=== PATIENT | female | born 1955 | race Caucasian/White ===

== ENCOUNTER → 2017-03-08 | Outpatient (CLI) | payer BC ==
[~2017-03-08] MED LIST: ASPI-557 PO; CALC-750 PO; DILT120C47 PO; METH10TA PO; NIAC100045 PO; TRAM50TA4 PO
--- NOTE | 2017-03-08 16:41 | DI ---
Indication: ITS.REASON: M25.562 PAIN IN LEFT KNEE PROCEDURE: MRI KNEE LEFT W/O CONTRAST: Encounter: Initial Comparison: Left knee MRI dated August 15, 2013 and left knee radiographs dated October 31, 2014 Technique: Multiplanar multisequence MR imaging of the left knee was performed without contrast. Findings: Complex degenerative tear of the posterior horn medial meniscus is again seen. Lateral meniscus is intact. The ACL and PCL are intact. The MCL and lateral collateral ligament complex are intact. The extensor mechanism is within normal limits. No acute fracture. There is new heterogeneity of the distal femur and proximal tibial bone marrow. There are scattered T2 hyperintense nodular foci seen throughout these areas which were not present on the comparison study. No obvious radiographic correlate on the 2015 radiographs. The cartilage of the lateral compartment shows partial-thickness loss with focal full-thickness loss in the anterior femoral condyle with subchondral edema. Medial compartment cartilage shows areas of focal full-thickness loss with osteophyte formation. Patellofemoral compartment has full-thickness loss in the median ridge and portions of the lateral facet. Small joint effusion. No Curtis's cyst. Muscular signal intensity is within normal limits. Impression: 1. New multifocal marrow abnormality with numerous tiny lesions seen in the distal femur and proximal tibia. Differential considerations include atypical red marrow. Recommend correlation for any history of anemia or marrow stimulating medications. Other considerations include metastatic disease and marrow infiltrating processes such as myeloma and leukemia/lymphoma. Nuclear medicine bone scan may be helpful for further evaluation. 2. Tricompartmental osteoarthritis with a degenerative medial meniscal tear. .
== END ==
LOC: IMA 15:05
PROVIDERS: ATTEND Family Medicine
DX: M17.12 Unilateral primary osteoarthritis, left knee (principal); M23.322 Other meniscus derangements, posterior horn of medial meniscus, left knee; R93.8 Abnormal findings on diagnostic imaging of other specified body structures; M25.562 Pain in left knee

== ENCOUNTER 2017-06-07 07:30 | Inpatient (IN) ==
[2017-06-21] MEDS ORDERED: LIDOCAINE 1% (10mg/ml) 2mL INJ PF SDV ID ONE (06:00)
[2017-06-21] MEDS ORDERED: METOCLOPRAMIDE 10mg/2ml INJECTION IVP ONE (06:00)
[2017-06-21] MEDS ORDERED: CEFAZOLIN 1 G INJECTION IVP ONE (06:00)
[2017-06-21] MEDS ORDERED: FAMOTIDINE PB 20 MG/50 ML BAG IV ONE (06:00)
[2017-06-21] MEDS ORDERED: DEXAMETHASONE 4 MG/ML INJECTION IVP ONE (06:00)
[2017-06-21] MEDS ORDERED: ACETAMINOPHEN 500 MG TABLET PO ONE (06:00)
[2017-06-21] MEDS ORDERED: ONDANSETRON 4 MG/2 ML INJECTION IVP ONE (06:00)
[2017-06-21] MEDS ORDERED: NOZIN NASAL SWAB NAS ONE ×2 (06:00→15:55)
[2017-06-21] MEDS ORDERED: EPINEPHrine 0.25 MG, BUPIVACAINE 0.25% PF 30 ML, MORPHINE SULFATE 15 MG, KETOROLAC INJ ... OPSITE ONE (08:00)
--- OUTSIDE RECORDS SUMMARY | 2017-06-21 10:58 | External Medical Summary ---
:1955 Author Organization [employer] Care Team Providers Name Role Phone Lei Acosta Provider Role Unavailable Allergies No Known Allergies Problems Problem Type Condition Code Onset Dates Condition Status Assessment Dental caries, unspecified K02.9 Active Medications Medication Code Code Instructions Start End Date Status [place] [address]-22 not 05-01 [place] [address]-02 5-325 MG Orally 1 tablet minophen 65-01 every 4-6 hours as [place] [address]-43 0.12 % not Gluconate 01-16 Mouth/Throat defined morning and bedtime Cartia XT [facility] 77368-19 not 00-05 defined Procedures Procedure Coding System Code Date RESIN COMPOS - 1 SURFACE POSTERIOR CPT-4 D2391 Aug 14, 2016 Results No Known Results Summary Purpose eClinicalWorks Submission
--- OUTSIDE RECORDS SUMMARY | 2017-06-21 10:58 | External Medical Summary ---
:1955 Author Organization [employer] Care Team Providers Name Role Phone Lei Acosta Provider Role Unavailable Allergies, Adverse Reactions, Alerts Substance Reaction Event Type Seasonal Info Not Available Non Drug Allergy Problems Problem Type Condition Code Onset Dates Condition Status Assessment Encounter for dental examination and Z01.20 Active cleaning without abnormal findings Medications Medication Code Code Instructions Start End Date Status Dosage System Date Methimazole [facility] 57071-97 not 05-01 defined Hydrocodone-Aceta [facility] 22544-29 5-325 MG Orally 1 tablet minophen 65-01 every 4-6 hours as [place] [address]-35 0.12 % not Gluconate 01-16 Mouth/Throat defined morning and bedtime Cartia XT [facility] 05527-40 not 00-05 defined Procedures Procedure Coding System Code Date Periodontal scaling & root CPT-4 D4341 Jul 03, 2016 Vital Signs Date/Time: Jul 03, 2016 Blood Pressure Diastolic 88 mm Hg Blood Pressure Systolic 141 mm Hg Cardiac Monitoring Heart Rate 67 /min Results No Known Results Summary Purpose [employer]ClinicalWorks Submission
--- OUTSIDE RECORDS SUMMARY | 2017-06-21 10:58 | External Medical Summary ---
:1955 Author Organization [employer] Care Team Providers Name Role Phone Lei Acosta Provider Role Unavailable Allergies, Adverse Reactions, Alerts Substance Reaction Event Type Seasonal Info Not Available Non Drug Allergy Problems Problem Type Condition Code Onset Dates Condition Status Assessment Encounter for dental examination and Z01.20 Active cleaning without abnormal findings Medications Medication Code System Code Instructions Start Date End Date Status Dosage Methimazole [facility] [address] not defined -01 Cartia XT [facility] [address] not defined -05 Procedures Procedure Coding System Code Date INTRAORL - CMPL SERIES CODE 01152 CPT-4 D0210 Jun 06, 2016 COMP ORAL EVALUATION - NEW/EST PT CPT-4 D0150 Jun 06, 2016 Results No Known Results Summary Purpose [facility] Submission
--- OUTSIDE RECORDS SUMMARY | 2017-06-21 10:58 | External Medical Summary ---
:1955 Author Organization [employer] Care Team Providers Name Role Phone Lei Acosta Provider Role Unavailable Allergies No Known Allergies Problems Problem Type Condition Code Onset Dates Condition Status Assessment Fracture of tooth (traumatic), S02.5XXB Active initial encounter for open fracture Medications Medication Code Code Instructions Start End Date Status Dosage System Date Hydrocodone[place]Aceta N[place] 66702-57 5-325 MG Orally 1 tablet minophen 65-01 every 4-6 hours as needed p.r.n. Methimazole NDC 89942-50 not 05-01 defined Cartia XT NDC 31717-77 not 00-05 defined Chlorhexidine NDC 84705-21 0.12 % not Gluconate -16 Mouth/Throat defined morning and bedtime Procedures Procedure Coding System Code Date RESIN COMPOS - ONE SURFACE ANTERIOR CPT-4 D2330 Aug 01, 2016 RESIN COMPOS - ONE SURFACE ANTERIOR CPT-4 D2330 Aug 01, 2016 Results No Known Results Summary Purpose [employer]ClinicalWorks Submission
--- OUTSIDE RECORDS SUMMARY | 2017-06-21 10:58 | External Medical Summary ---
:1955 Author Organization [employer] Care Team Providers Name Role Phone Lei Acosta Provider Role Unavailable Allergies No Known Allergies Problems Problem Type Condition Code Onset Dates Condition Status Assessment Encounter for dental examination and Z01.20 Active cleaning without abnormal findings Medications Medication Code Code Instructions Start End Date Status Dosage System Date Cartia XT NDC 48825-05 not 00-05 defined Hydrocodone-Aceta NDC 54639-36 5-325 MG Orally 1 tablet minophen 65-01 every 4-6 hours as needed p.r.n. [place]im[place] [address]-09 not 05-01 [place] [address]-91 0.12 % not Gluconate 01-16 Mouth/Throat defined morning and bedtime Procedures Procedure Coding System Code Date Periodontal scaling & root CPT-4 D4341 Aug 09, 2016 Vital Signs Date/Time: Aug 09, 2016 Blood Pressure Diastolic 81 mm Hg Blood Pressure Systolic 131 mm Hg Cardiac Monitoring Heart Rate 83 /min Results No Known Results Summary Purpose [employer]Works Submission
--- OUTSIDE RECORDS SUMMARY | 2017-06-21 10:58 | External Medical Summary ---
[...] Status Dosage System Date Cartia XT NDC 19419-94 not 00-05 defined Chlorhexidine NDC 07[address]-28 0.12 % not Gluconate 01-16 Mouth/Throat defined morning and bedtime Methimazole NDC 85816-45 not 05-01 defined Hydrocodone[place]Aceta N[place] 408[address]-93 5-325 MG Orally 1 tablet minophen 65-01 every 4-6 hours as needed p.r.n. Procedures Procedure Coding System Code Date Periodontal scaling & root CPT-4 D4341 Jul 25, 2016 Vital Signs Date/Time: Jul 25, 2016 Blood Pressure Diastolic 77 mm Hg Blood Pressure Systolic 134 mm Hg Cardiac Monitoring Heart Rate 50 /min Results No Known Results Summary Purpose eClinicalWorks Submission
--- OUTSIDE RECORDS SUMMARY | 2017-06-21 10:58 | External Medical Summary ---
:1955 Author Organization e[employer]Works Care Team Providers Name Role Phone Lei Acosta Provider Role Unavailable Allergies No Known Allergies Problems Problem Type Condition Code Onset Dates Condition Status Assessment Dental caries, unspecified K02.9 Active Medications Medication Code Code Instructions Start End Date Status [place] [address]-47 0.12 % not Gluconate 01-16 Mouth/Throat defined morning and bedtime [place] 49394-42 5-325 MG Orally 1 tablet minophen 65-01 every 4-6 hours as needed p.r.n. Cartia XT NDC 19705-44 not 00-05 [place] [address]-63 not 05-01 defined Procedures Procedure Coding System Code Date RESIN COMPOS - 2 SURFACES POSTERIOR CPT-4 D2392 Jul 27, 2016 RESIN COMPOS - 1 SURFACE POSTERIOR CPT-4 D2391 Jul 27, 2016 RESIN COMPOS - 2 SURFACES POSTERIOR CPT-4 D2392 Jul 27, 2016 Results No Known Results Summary Purpose eClinicalWorks Submission
[2017-06-21 11:04] VITALS: BMI 29.1
--- NOTE | 2017-06-21 11:21 | History & Physical Update ---
- History and Physical Update Date: 06/21/17 Update: I evaluated this patient and found no changes in the history and clinical exam findings. The treatment plan and recommendations are also unchanged from the previous documentation.
[2017-06-21] MEDS: LR 1,000 ML IV SCH ×2 (11:40→14:03)
--- NOTE | 2017-06-21 11:51 | Anesthesia Preoperative Report ---
Anesthesia Preoperative Record - Date and Time Date: 06/21/17 Preoperative Diagnosis: Lt TKA M17.12 primary osteoarthritis left knee Proposed Procedure: left knee arthroplasty NPO Since Date: 06/20/17 NPO Since Time: 23:00 Allergies/Adverse Reactions: Allergies Allergy/AdvReac Type Severity Reaction Status Date / Time No Known Drug Allergies Allergy Unknown Verified 06/21/17 11:10 - Vital Signs Vital Signs: Temperature 98.4 F 06/21/17 11:03 Pulse Rate 71 06/21/17 11:21 Respiratory Rate 17 06/21/17 11:03 Blood Pressure 153/83 H 06/21/17 11:03 Pulse Oximetry 96 06/21/17 11:03 Height and Weight: Height 1.59 m Weight 73.5 kg Body Mass Index 29.1 - Medications Inpatient Medications: Current Medications Epinephrine HCl 0.25 mg/Bupivacaine HCl 30 ml/Morphine Sulfate 15 mg/Ketorolac Tromethamine 60 mg/Sodium Chloride 65.25 mls @ 1 mls/hr OPSITE INTRAOP ONE PRN Reason: Protocol Stop: 06/24/17 01:14 Lactated Ringer's (Lactated Ringers) 1,000 mls @ 50 mls/hr IV .Q20H BRAD Last Admin: 06/21/17 11:40 Dose: 50 mls/hr Miscellaneous Medication (Tranexamic 1gm/Ns 100 Irr Mix) 100 ml IR O ONE Stop: 06/21/17 15:03 Sodium Chloride (Iv Flush) 10 - 80 ml IVF PRN PRN PRN Reason: Flushing Home Medications: Home Medications Medication Instructions Recorded Confirmed Type Mapap Regular Strength 325 mg 650 mg PO Q6H PRN 05/14/17 06/21/17 History tablet methimazole 10 mg tablet 25 mg PO DAILY 05/14/17 06/21/17 History Prilosec (Omeprazole) 20 mg 20 mg PO DAILY 30 Days cap 05/16/17 06/21/17 History capsule,delayed release Raw Meal Vitamin 1 unit PO DAILY 05/16/17 06/21/17 History aspirin 81 mg tablet,delayed 81 mg PO DAILY tab 05/16/17 06/20/17 History release biotin 5,000 mcg disintegrating 5,000 mcg PO DAILY tab 05/16/17 06/21/17 History tablet dilTIAZem HCl [Cartia Xt] 120 mg PO DAILY 05/16/17 06/21/17 History Niacin [Niacin ER] 1,000 mg PO HS 06/05/17 06/21/17 History - Medical History Respiratory: Reports: Sleep Apnea (does not use cpap ) Cardiovascular: Reports: Hypertension, Other (heart cath Dr. Simental last week, no problems due to abnomal cxray ) Neuro/Musculoskeletal: Reports: Depression, Other (anxiety ) - Surgical History HEENT Surgeries: Reports: Eye Surgery (LASER SURGERY FOR A VEIN RIGHT), Tonsillectomy ( A CHILD PER PT) Cardiac Surgeries/Treatments: Reports: Cardiac Catheterization (LHC 1 WEEK AGO/ NEGATIVE) Respiratory Surgery/Treatments: Reports: CPAP Use (DOESN'T USE PER PT) GI Surgery/Treatments: Reports: Appendectomy, Colonoscopy, EGD Musculoskeletal Surgery/Tx: Reports: Knee Arthroscopy (LEFT), Orthopedic Surgery (LEFT ARM PLATE & REMOVAL) Reproductive Surgery/Treatment: Reports: Hysterectomy, Tubal Ligation Anesthesia Reactions: Other (hard time breathing ) Hx Family Anesthesia Reaction: No History of Motion Sickness: No - Social History Smoking Status: Never smoker - Pertinent Findings EKG Rhythm: Normal Sinus Rhythm - Physical Exam Respiratory Exam: Present: lungs clear, bilateral breath sounds equal Cardiovascular Exam: Present: regular rate and rhythm, no murmur - Airway Assessment Mallampati Score: III TMD: 2 Fingerbreadths Overall Assessment: no airway concerns, may be difficult intubation - ASA ASA Score: 2 - Plan Anesthesia: General Inhalation Gases Peripheral Nerve Block: Saphenous-Left - Discussion Discussion: Discussed risks/options/alternatives of anesthesia and questions answered. Patient consents. Nursing pain assessment noted. Attestation Statement: Prior to the delivery of any anesthetic medication, I examined the patient, developed the plan, obtained the patient's consent and discussed the risk and benefits of the procedure with the patient/guardian.
[2017-06-21] MEDS ORDERED: MIDAZOLAM 2mg/2ml INJECTION IVP ONE (11:58)
[2017-06-21] MEDS ORDERED: ROPIVACAINE 0.5% (5mg/ml) 30ml INJ ONE (12:03)
--- NOTE | 2017-06-21 12:13 | Anesthesia Procedure Note ---
Peripheral Nerve Blockade - Procedure Physician: Az Prado MD Date: 06/21/17 Surgical Procedure: left knee arthroplasty Discussion: Discussed risks/options/alternatives of anesthesia and questions answered. Patient consents. Nursing pain assessment noted. Block Start: 12:08 Block Stop: 12:10 Blocked Employed: Adductor Canal Indication: Post-Operative Pain Approach: Left Side Confirmed Position: Supine Patient: Consent, Risks/Benefits Discussed, Post Block Act. Discussed IV Sedation: Yes Midazolam (mg): 2 Initial Vital Signs: Temperature 98.4 F 06/21/17 11:03 Temperature Source Oral 06/21/17 11:03 Pulse Rate 79 06/21/17 11:03 Respiratory Rate 17 06/21/17 11:03 Blood Pressure 153/83 H 06/21/17 11:03 Blood Pressure Mean 106 06/21/17 11:03 Blood Pressure Position Sitting 06/21/17 11:03 Pulse Oximetry 96 06/21/17 11:03 Oxygen Delivery Method 06/21/17 11:03 Post Vital Signs: Temperature 98.4 F 06/21/17 11:03 Pulse Rate 71 06/21/17 11:21 Respiratory Rate 06/21/17 11:03 Blood Pressure 153/83 H 06/21/17 11:03 Pulse Oximetry 96 06/21/17 11:03 Initial Pain Pain Score: 3 Post Block Pain Score: 3 Prep: Chlorhexadine/ETOH Ultrasound Used?: Yes - Injectate Ropivacaine (%): 0.5 Ropivacaine (mL): 20 Was Epi 1:200,000 Used?: No Injection: Injection made incrementally with constant monitoring and aspiration every ml
[2017-06-21] MEDS ORDERED: ANESTHESIA MIXTURE 50 ML IV ONE (12:15)
[2017-06-21] MEDS ORDERED: FentaNYL 100 MCG/2 ML INJECTION ONE ×3 (12:20→13:27)
[2017-06-21] MEDS ORDERED: PROPOFOL 20 ML ONE (12:21)
[2017-06-21] MEDS ORDERED: SALINE FLUSH 10ml SYRINGE ONE (13:00)
[2017-06-21] MEDS ORDERED: EPHEDRINE 50mg/ml INJECTION ONE (13:00)
[2017-06-21] MEDS ORDERED: VANCOMYCIN 1,000 MG INJECTION ONE (13:13)
[2017-06-21] MEDS ORDERED: VANCOMYCIN 1,000 MG INJECTION IAR ONE (13:19)
[2017-06-21] MEDS ORDERED: ONDANSETRON 4 MG/2 ML INJECTION ONE (14:13)
--- NOTE | 2017-06-21 14:23 | Operative Note ---
- Procedure Side: left Preoperative Diagnosis: knee primary DJD Postoperative Diagnosis: Same as preoperative diagnosis. Operation: total knee arthroplasty Surgeon: Dianna Prado MD Retail Presentation Specialist: Thierry Sullivan Complications: None. Regional/Trunk Block: Spinal Peripheral Nerve Block: Saphenous-Left Estimated Blood Loss: See Anesthesia Record. Fluids: Please see Anesthesia Record. Description of Procedure: Mrs. Bonilla and her left knee were identified and marked in the preoperative holding area. She was brought back to the operating suite after a saphenous nerve block was placed in the preoperative holding area. Spinal anesthetic was administered and she was placed supine on the operating table. The left lower extremity was prepped and draped in my normal sterile fashion. Timeout was performed. The [employer] robot was used during the surgery. She had a flexion contracture but no significant varus or valgus deformity. A standard anterior midline incision followed by medial parapatellar arthrotomy was performed. Anterior fat pad and meniscus were removed. The patella was resurfaced to a size 29. I then placed a tibial array to 2 poke hole incisions in the mid tibia just medial to the crest. The pins were placed bicortically. I then placed a second femoral array again using bicortical pins in the distal femoral metaphysis medially. Checkpoints were then placed both in the femur and the tibia. The bone was then registered with the [employer] robot. Osteophytes were removed and gaps were captured both 90 and 0 with correction. The knee was then balanced using the robotic software. The [employer] robotic arm was then used to assist with the bone cuts. Posterior osteophytes and remaining meniscus were removed. Trial components were placed. We used a 3 femur and a 2 tibia with a 9 mm spacer. She tracked well and was well balanced throughout range of motion. The leg was exsanguinated and the tourniquet inflated to 250 mmHg. The bone was prepared for cementing and components were cemented into place and allowed to cure in extension. The tourniquet was let down and hemostasis obtained with electrocautery. The knee was ranged one more time to ensure good stability, balance and patellar tracking. 1 g of TXA was allowed to sit in the wound for 5 minutes and then suctioned out. 1 g of vancomycin powder was then placed into the knee joint. The capsulotomy was then closed with #1 Vicryl. I then left my players assistant to close the subcutaneous tissue with 2-0 Vicryl. Running 4-0 Monocryl will be used in the subcuticular layer. Dermabond will be used on the skin followed by sterile dressing. After drapes are removed patient will be taken to recovery room under the care of anesthesia.
--- NOTE | 2017-06-21 14:56 | Anesthesia Postoperative Note ---
- Date and Time Date: 06/21/17 Time: 14:57 - Status Patient Participated in Evaluation: Patient Participated in Person Vital Signs: Temperature 98.4 F 06/21/17 11:03 Pulse Rate 62 06/21/17 12:40 Respiratory Rate 16 06/21/17 12:40 Blood Pressure 118/64 06/21/17 12:40 Pulse Oximetry 98 06/21/17 12:40 Respiratory Function: Airway Patent Cardiovascular Function: Regular Pulse EKG Rhythm: Normal Sinus Rhythm Mental Status: Alert and Oriented Pain Intensity: 2 Hydration: Taking PO Fluids Complications During Recover: None Apparent - Follow-Up Instructions Instructions: Per Surgeon
[2017-06-21] MEDS ORDERED: TRANEXAMIC ACID 1gm/NS 100ml IRR MIX IR ONE (15:02)
[2017-06-21] MEDS ORDERED: SALINE FLUSH 10ml SYRINGE IVF PRN (15:02)
[2017-06-21] MEDS: HYDROMORPHONE 2 MG/ML INJECTION IVP PRN ×3 (15:09→15:32)
[2017-06-21] MEDS ORDERED: DiphenhydrAMINE 50 MG/ML INJECTION IVP PRN (15:55)
[2017-06-21] MEDS ORDERED: NAPROXEN 220 MG TABLET PO PRN (15:55)
[2017-06-21] MEDS ORDERED: ONDANSETRON 4 MG/2 ML INJECTION IVP PRN (15:55)
[2017-06-21] MEDS ORDERED: DiphenhydrAMINE 25 MG CAPSULE PO PRN (15:55)
--- NOTE | 2017-06-21 15:55 | XRay Report ---
Indication: postoperative image PROCEDURE: XR knee LT 2V: Encounter: Initial Comparison: April 18, 2017 Findings: Postoperative changes of left total knee replacement are seen. There is expected postoperative subcutaneous gas. No evidence of hardware failure or acute fracture. No retained radiopaque surgical instruments or sponges. Overlying material causing artifact. Impression: New left total knee prosthesis without evidence of immediate complication. .
[2017-06-21] MEDS ORDERED: TRANEXAMIC ACID 1,000 MG in NS 100 ML IV ONE (16:00)
[2017-06-21] MEDS ORDERED: FALL RISK - PHARMACY CONSULT XX PRN (16:10)
[2017-06-21] MEDS: NS 1,000 ML IV SCH (17:16)
[2017-06-21] MEDS: ACETAMINOPHEN 325 MG TABLET PO SCH ×2 (17:20→20:27)
[2017-06-21] MEDS: Oxycodone *IR* 5 MG TABLET PO PRN ×2 (19:26→21:26)
[2017-06-21] MEDS: ASPIRIN *EC* 325 MG TABLET PO SCH (20:26)
[2017-06-21] MEDS: DOCUSATE SODIUM 100 MG CAPSULE PO SCH (20:27)
[2017-06-21] MEDS: CEFAZOLIN 2 G in NS 100 ML IV SCH (20:27)
[2017-06-21] MEDS ORDERED: LORazepam 1 MG TABLET PO PRN (21:00)
[2017-06-21] MEDS ORDERED: NIACIN ER 500 MG TABLET PO SCH (21:00)
[2017-06-21] MEDS ORDERED: SENNOSIDES 8.6 MG TABLET PO SCH (21:00)
[2017-06-21] MEDS: NOZIN NASAL SWAB NAS SCH (21:14)
[2017-06-22] MEDS: Oxycodone *IR* 5 MG TABLET PO PRN ×3 (00:48→14:09)
[2017-06-22] MEDS: NS 1,000 ML IV SCH (05:00)
[2017-06-22] MEDS: CEFAZOLIN 2 G in NS 100 ML IV SCH (05:01)
[2017-06-22] MEDS: NOZIN NASAL SWAB NAS SCH ×2 (05:50→13:18)
[2017-06-22] MEDS ORDERED: OMEPRAZOLE 20 MG CAPSULE PO SCH (06:30)
[2017-06-22] MEDS: ASPIRIN *EC* 325 MG TABLET PO SCH (08:41)
[2017-06-22] MEDS: ACETAMINOPHEN 325 MG TABLET PO SCH ×2 (08:42→13:16)
[2017-06-22] MEDS: DOCUSATE SODIUM 100 MG CAPSULE PO SCH (08:42)
--- NOTE | 2017-06-22 08:52 | Orthopedic Progress Note ---
Date: Subjective/Severity of Illness: Crescencio is having little pain. She rates it as a "0". No CP, cough or SOA. Orthopedic Objective PO Vital signs: Temperature 96.6 F L 06/22/17 03:58 Pulse Rate 70 06/22/17 03:58 Respiratory Rate 16 06/22/17 03:58 Blood Pressure 116/67 06/22/17 03:58 Pulse Oximetry 97 06/22/17 03:58 Height and Weight: Height 5 ft 2.5 in Weight 162 lb 0.636 oz Body Mass Index 29.1 - Constitutional General Appearance: Present: alert, no acute distress - Respiratory Exam Present: non-labored - Extremities Exam Extremities: Present: pulses intact, normal capillary refill. Absent: calf tenderness - Surgical Site Incision: Mepilex dressing intact - Neurological Exam Present: no deficits - Psychiatric Exam Present: alert, normal affect - Labs Result Diagrams: 06/22/17 04:01 06/22/17 04:01 Abnormal lab results 06/22/17 06/22/17 Range/Units 04:01 04:01 RBC 3.14 L (4.00-5.20) M/MM3 Hgb 9.3 L (12-16) GM/DL Hct 28.8 L (36-46) % Potassium 5.2 H (3.6-5) MEQ/L Glucose 132 H (65-110) MG/DL H & H 06/22/17 Range/Units 04:01 Hgb 9.3 L (12-16) GM/DL Hct 28.8 L (36-46) % Orthopedic Assessment and Plan (1) Primary osteoarthritis of left knee Status: Acute Assessment and Plan: Current anti-coagulation protocol for VTE prophylaxis. SCD's. PT/OT services to improve independent function. Discharge Planning per Case Management. - Anticoagulation Therapy Anticoagulation: ASA 325 mg PO BID x6 weeks Hospital Course Summary Disclaimer: The visit summary below is not to be considered part of the above Progress Note.
[2017-06-22] MEDS ORDERED: METHIMAZOLE 10 MG TABLET PO SCH (09:00)
[2017-06-22] MEDS ORDERED: POLYETHYL GLYCOL 3350 17gm PACKET PO SCH (09:00)
[2017-06-22 11:41] VITALS: BP 135/76; PULSE 90; RESP 16; TEMP 98.4; O2SAT 92
--- NOTE | 2017-06-22 13:48 | Discharge Summary ---
Orthopedic Discharge Info Date of admission: 06/21/17 10:52 Primary care physician: Mike Laureano MD Attending Physician: Az Prado MD Consults: 06/21/17 10:56 Consult to Anesthesiology [CONS] Routine Consulting Provider: SADAF Lees Reason For Exam: Preoperative Assessment 06/21/17 15:55 Case Management Consult [CONS] Routine Reason For Exam: Discharge Planning DME-Walker [CONS] Routine Height: 5 ft 2.5 in Weight: 162 lb 0.636 oz Comment: change dressing in 2 weeks Total Joint Outpatient Therapy [CONS] Routine Comment: change dressing in 2 weeks - Discharge Diagnosis (1) Primary osteoarthritis of left knee Status: Acute - Procedures Procedures: Left TKA - Laboratory Result Diagrams: 06/22/17 04:01 06/22/17 04:01 Laboratory: Abnormal lab results 06/22/17 06/22/17 Range/Units 04:01 04:01 RBC 3.14 L (4.00-5.20) M/MM3 Hgb 9.3 L (12-16) GM/DL Hct 28.8 L (36-46) % Potassium 5.2 H (3.6-5) MEQ/L Glucose 132 H (65-110) MG/DL H & H 06/22/17 Range/Units 04:01 Hgb 9.3 L (12-16) GM/DL Hct 28.8 L (36-46) % Orthopedic Discharge HPI - HPI Comments This patient was admitted for elective surgical tx of end stage degenerative joint disease that failed to respond to conservative treatment. Further details of this is found in the admission H&P. Orthopedic Hospital Course Hospital course: 06/22/17 13:44 After appropriate preoperative clearance and signing of operative consent, the patient was given IV antibiotics, according to orthopedic protocol. The patient was taken to the operating room and underwent elective joint arthroplasty. Following surgery, antibiotics were discontinued less than 24 hours according to joint protocol. Appropriate anticoagulants were initiated and SCDs added for DVT prevention. The dressing was clean, dry, and intact. Pain control was obtained via multimodal approach. Bowel motivation addressed with scheduled and PRN medications. Early mobilization was initiated through PT services. Discharge arrangements made by a collaborative effort between the patient and Case Management. Follow-up is scheduled in 2-3 weeks. Discharge instructions given by orthopedic providers and nursing staff at discharge. Discharge condition was good. Ongoing care required?: No - Postoperative Anemia patient received IVF, labs monitored daily, no intervention required, HGB drop- acceptable Discharge Plan - Med Rec/Dispo Referrals/Follow Up: Az Prado MD [Physician] - 07/16/17 3:00 pm Additional Instructions: [facility] ON 06/25/2017 AT 1:00PM FOR PHYSICAL THERAPY EVAL WITH [facility]. PLEASE COMPLETE THE PAPERWORK IN [place] [facility] [facility] [place]IOR TO THE APPOINTMENT. PHONE [phone] Prescriptions: New Acetaminophen [Tylenol] 650 mg PO QID #100 tab Naproxen [Aleve] 440 mg PO BID PRN #60 tab PRN Reason: Pain Oxycodone *Ir* [Roxicodone *Ir*] 5 - 15 mg PO Q3H PRN #60 tab PRN Reason: Breakthrough Pain Aspirin *EC* [Ecotrin] 325 mg PO BID #84 tab Continue dilTIAZem HCl [Cartia Xt] 120 mg PO DAILY Niacin [Niacin ER] 1,000 mg PO HS Raw Meal Vitamin 1 unit PO DAILY methimazole 10 mg tablet 25 mg PO DAILY biotin 5,000 mcg disintegrating tablet 5,000 mcg PO DAILY tab Prilosec (Omeprazole) 20 mg capsule,delayed release 20 mg PO DAILY 30 Days cap Discontinued Mapap Regular Strength 325 mg tablet 650 mg PO Q6H PRN PRN Reason: Pain aspirin 81 mg tablet,delayed release 81 mg PO DAILY tab - Disposition 01 Discharged Home, Self-Care
[2017-06-22] MEDS ORDERED: SENNOSIDES 8.6 MG TABLET PO PRN (14:42)
[2017-06-23] MEDS ORDERED: BISACODYL 10 MG SUPPOSITORY RECTALLY SCH (20:00)
== END 2017-06-22 14:25 | disposition home or self-care (01) | DRG 470 ==
LOC: SRG 06-21 10:52
PROVIDERS: ADMIT Orthopaedic Surgery; ATTEND Orthopaedic Surgery